=== PATIENT | female | born 1980 | race Caucasian/White ===

== ENCOUNTER 2025-10-05 12:23 | Emergency (ER) | payer MEDICAID ==
[~2025-10-05] VITALS: Ht 170.2 cm; Wt 59.0 kg
[2025-10-05 12:25] VITALS: BP 120/79
[2025-10-05] MEDS ORDERED: HEPATITIS B VIRUS VACCINE-PF 20 MCG/ML VIAL IM ONE (15:10)
[2025-10-05] MEDS: HEPATITIS B VIRUS VACCINE-PF 20 MCG/ML VIAL IM ONE (15:19)
[2025-10-05 16:00] LABS: HIV-1/2 ANTIBODY NON REACTIVE (NONREACTIVE)
[2025-10-05] MEDS: LAMIVUDINE/ZIDOVUDIN 150-300MG TABLET PO ONE (16:32)
[2025-10-05] MEDS ORDERED: LAMI1TAB PO (16:44)
[2025-10-05 17:14] VITALS: BP 113/79; O2SAT 99
[2025-10-06 06:07] LABS: HEPATITIS B CORE AB, TOTAL Negative (Negative); HEPATITIS B SURFACE AB, QUAL Non Reactive (.); HEPATITIS C VIRUS ANTIBODY Non Reactive (Non Reactive)
== END 2025-10-05 17:15 | disposition home or self-care (01) ==
LOC: ER 12:23
DX: Z77.21 Contact with and (suspected) exposure to potentially hazardous body fluids (principal); E03.9 Hypothyroidism, unspecified; W46.0XXA Contact with hypodermic needle, initial encounter; Y93.89 Activity, other specified; Y92.89 Other specified places as the place of occurrence of the external cause; Y99.0 Civilian activity done for income or pay
CPT/HCPCS: 36415; 86704; 86706; 86803; 87806; 90746; A4606; A4663